=== PATIENT | female | born 1985 | race African-American/Black ===

== ENCOUNTER 2017-06-02 15:46 | Emergency (ER) | payer OTHER, SELFPAY ==
[2017-06-02] MEDS ORDERED: AMOXicillin 250 MG CAP ONE (15:58)
== END 2017-06-02 16:04 | disposition home or self-care (01) ==
LOC: BURERS 15:46
DX: J02.9 Acute pharyngitis, unspecified (principal); I10 Essential (primary) hypertension
CPT/HCPCS: 99282